=== PATIENT | female | born 1950 | race Caucasian/White ===

== ENCOUNTER 2016-07-20 06:57 | Day surgery (SDC) | payer MEDICARE, OTHER ==
[~2016-07-20] VITALS: Ht 157.6 cm; Wt 50.0 kg
[2016-07-20] VITALS (10 sets, daily range): BP systolic 95–175; BP diastolic 71–92; PULSE 57–100; TEMP 98.5
[~2016-07-20 06:57] MED LIST: CITALOPRAM20 MG PO; FLEXERIL5 MG PO; NASAL SPRAY; VICOPROFEN 7.51 TAB PO
[2016-07-20 07:31] LABS: HEMOGLOBIN 13.3 g/dl (12.5-16.0); MEAN CELL VOLUME 86 fl (80.0-100.0); MEAN CORPUSCULAR HEMOGLOBIN 29 pg (27.0-31.0); MEAN CORPUSCULAR HGB CONC 33 g/dl (33.0-37.0); MEAN PLATELET VOLUME 8.5 fl (7.4-10.4); PLATELET COUNT 230 K/mm3 (130-400); RED BLOOD COUNT 4.66 M/mm3 (4.10-5.30); REDCELL DISTRIBUTION WIDTH-CV 12.9 % (11.5-14.5); WHITE BLOOD COUNT 6.5 K/mm3 (4.8-10.8)
[2016-07-20] MEDS ORDERED: CELEXA10 MG PO (07:38)
[2016-07-20] MEDS ORDERED: NITROSTAT0.4 MG/TAB SL (07:38)
[2016-07-20 07:39] LABS: PROTHROMBIN TIME 11.4 SECONDS (9.7-12.8)
[2016-07-20] MEDS ORDERED: ANTIVERT 12.512.5 MG PO (07:39)
[2016-07-20] MEDS ORDERED: NORVASC 5MG5 MG/TAB PO (07:40)
[2016-07-20] MEDS ORDERED: PROBIOTICA100 Milli1 PO (07:41)
[2016-07-20] MEDS ORDERED: CLARITIN 1010 MG/TAB PO (07:41)
[2016-07-20 07:42] LABS: CALCIUM 9.8 mg/dL (8.4-10.2); CREATININE, serum 0.77 mg/dL (0.52-1.25); POTASSIUM 3.4 mmol/L (3.4-5.0)
[2016-07-20 10:13] LABS: ARTERIAL BLD GAS O2 SATURATION 98.6 % (92-100); ARTERIAL BLD GAS TCO2 CT 33.7; ARTERIAL BLOOD GAS BASE EXCESS 5.1 (-2-2); ARTERIAL BLOOD GAS PO2 156.9 mmHg (80-100); ARTERIAL BLOOD GAS pH 7.36 (7.35-7.45)
[2016-07-20 10:14] LABS: ATS? NO
== END 2016-07-20 13:20 | disposition home or self-care (01) ==
LOC: COL.RAD 06:57
PROVIDERS: Internal Medicine Cardiovascular Disease
DX: I27.2 Other secondary pulmonary hypertension (principal); R94.39 Abnormal result of other cardiovascular function study; R07.89 Other chest pain; R06.09 Other forms of dyspnea; F41.9 Anxiety disorder, unspecified; R00.2 Palpitations; Z82.49 Family history of ischemic heart disease and other diseases of the circulatory system; Z82.3 Family history of stroke; I08.3 Combined rheumatic disorders of mitral, aortic and tricuspid valves; Z79.899 Other long term (current) drug therapy
CPT/HCPCS: C1760; C1894; J2250; J2405; J3010; Q9967

== ENCOUNTER → 2016-08-17 | Outpatient (CLI) | payer MEDICARE, OTHER ==
[~2016-08-17] MED LIST changes: +ANTIVERT 12.512.5 MG PO; +CELEXA10 MG PO; +CLARITIN 1010 MG/TAB PO; +NITROSTAT0.4 MG/TAB SL; +NORVASC 5MG5 MG/TAB PO; +PROBIOTICA100 Milli1 PO
== END ==
LOC: COL.PUL 10:50
DX: R06.02 Shortness of breath (principal)

== ENCOUNTER → 2018-01-11 | Outpatient (CLI) | payer MEDICARE, OTHER | LOC: MC.RAD 15:05 | DX: Z12.31 Encounter for screening mammogram for malignant neoplasm of breast (principal) ==

== ENCOUNTER → 2019-09-19 | Outpatient (CLI) | payer MEDICARE, OTHER | LOC: MC.RAD 15:30 | DX: Z12.31 Encounter for screening mammogram for malignant neoplasm of breast (principal) ==